=== PATIENT | female | born 1965 | race Native Hawaiian/Other Pacific Islander ===

== ENCOUNTER 2019-02-07 08:40 | Outpatient (CLI) | payer OTHER ==
[2019-02-07 09:02] LABS: PLATELET COUNT 228 K/uL (152-353)
[2019-02-07 09:11] LABS: POTASSIUM 4.3 mmol/L (3.6-5.2)
== END 2019-02-07 20:40 | disposition home or self-care (01) ==
LOC: LABW 08:40 → CT 09:00 → LABW 20:40
PROVIDERS: Internal Medicine Medical Oncology
DX: E55.9 Vitamin D deficiency, unspecified (principal); C64.1 Malignant neoplasm of right kidney, except renal pelvis
CPT/HCPCS: 36415; 80053; 82164; 82306; 83615; 85027; Q9963

== ENCOUNTER 2020-02-21 07:39 | Outpatient (CLI) | payer OTHER ==
[2020-02-21 08:07] LABS: PLATELET COUNT 221 K/uL (152-353)
[2020-02-21 08:27] LABS: POTASSIUM 4.2 mmol/L (3.6-5.2)
== END 2020-02-21 19:25 | disposition home or self-care (01) ==
LOC: LABW 07:39 → CT 07:39
PROVIDERS: ATTEND Nurse Practitioner Adult Health
DX: E55.9 Vitamin D deficiency, unspecified (principal); C64.1 Malignant neoplasm of right kidney, except renal pelvis
CPT/HCPCS: 36415; 80053; 82306; 83615; 85027; Q9963

== ENCOUNTER 2020-04-02 09:58 | Outpatient (CLI) | payer OTHER | END 2020-04-02 19:03 | disposition home or self-care (01) | LOC: MAMMO 09:58 | PROVIDERS: ATTEND Nurse Practitioner Adult Health | DX: Z12.31 Encounter for screening mammogram for malignant neoplasm of breast (principal); E55.9 Vitamin D deficiency, unspecified; C64.1 Malignant neoplasm of right kidney, except renal pelvis ==

== ENCOUNTER 2021-03-22 08:38 | Outpatient (CLI) | payer OTHER ==
[2021-03-22 09:07] LABS: PLATELET COUNT 173 K/uL (152-353)
[2021-03-22 09:15] LABS: POTASSIUM 4.5 mmol/L (3.6-5.2)
== END 2021-03-22 18:58 | disposition home or self-care (01) ==
LOC: CT 08:38 → LABW 08:38 → CT 09:00
PROVIDERS: ATTEND Nurse Practitioner Adult Health
DX: C64.1 Malignant neoplasm of right kidney, except renal pelvis (principal); E55.9 Vitamin D deficiency, unspecified
CPT/HCPCS: 36415; 80053; 82306; 83615; 85027; Q9963